=== PATIENT | female | born 1965 | race Caucasian/White ===

== ENCOUNTER → 2019-06-08 | Day surgery (SDC) | payer BC, OTHER ==
--- NOTE | 2019-06-08 18:11 | OP ---
DATE OF OPERATION: 06/08/2019 PREOPERATIVE DIAGNOSIS: Left axillary adenopathy. POSTOPERATIVE DIAGNOSIS: Left axillary adenopathy. PROCEDURE: Left axillary node ultrasound-guided core biopsy and clip placement. ANESTHESIA: Local. ATTENDING SURGEON: Adalid Cannon MD ESTIMATED BLOOD LOSS: Minimal. COMPLICATIONS: None. DESCRIPTION OF PROCEDURE: Patient was made aware of the risks and benefits of the procedure and consented. She was placed in a supine position, and under sterile conditions and 2% lidocaine for local anesthesia, a small fatou was made in the skin. Using a 13-gauge suction biopsy via inferior approach, multiple cores were obtained under ultrasound guidance and submitted to Pathology. Likewise, under ultrasound guidance, a Hydromark barrel-shaped clip was placed into the lymph node. Patient tolerated the procedure well. Steri-Strips and a sterile bandage were applied. We will contact her with results. ADALID CANNON M.D. [id number]
--- NOTE | 2019-06-11 15:33 | PATH ---
Surgical Pathology Report Patient Name: PETER OROZCO [facility]. Rec. #: [id number] /Age/Gender: 1965 (Age: 53) / F Account: [id number] Location: [facility] Taken: 06/08/2019 Received: 06/09/2019 Reported: 06/11/2019 Physicians: Corrina Le M.D. Specimen(s) Received AXILLARY LYMPH NODE, LEFT Clinical History Solitary enlarged left axillary node Final Diagnosis AXILLARY LYMPH NODE, LEFT, CORE BIOPSY: METASTATIC CARCINOMA. TUMOR DEPOSIT MEASURES AT LEAST 3 MM IN THIS MATERIAL. SEE COMMENT. Comment: Immunohistochemical stains performed and interpreted at [facility] show the tumor is positive for AE1/3 and CK7, while negative for CK20. E-cadherin is positive supportive of ductal phenotype. Additional Immunohistochemical stains performed at [facility] [place], [place] ([id number]) and interpreted at [facility] show the tumor is positive for LUCIANO-3, while negative for Mammaglobin and TTF-1. Overall immunophenotype is consistent with breast origin. Suggest clinical and radiologic correlation. Case seen in intradepartmental review with consensus on diagnosis. Results of Estrogen Receptor (ER) and Progesterone Receptor (FL) studies performed at [facility] are as follows: ER (clone [id number] mouse monoclonal antibody by [employer]): ~70% nuclear staining with strong intensity (Positive). FL (clone16 mouse monoclonal antibody by [employer]): ~20% nuclear staining with weak to moderate intensity (Positive). HER2 studies pending and will be reported separately. Positive and negative controls (internal if applicable) show appropriate results. Formalin fixation and cold ischemic times are within current ASCO/CAP recommendations for ER, FL and Her2 testing. Electronically Signed Patricia Do M.D. Addendum Reported: 06/12/2019 Addendum Diagnosis Results of Her2 (IHC) study performed at [place], [place] ([id number]) are as follows: Her2 IHC (EP3 from [employer], formerly known as [id number], using [employer] Polymer Refine detection kit): 0 (Negative). Case discussed with Dr. Mckenna, 06/11/19. Positive and negative controls (internal if applicable) show appropriate results. Patricia Do M.D. Gross Description Received in formalin labeled "left axillary lymph node biopsy," is a 1.5 x 1.5 x 0.3 cm aggregate of doshi-yellow fragments of fibroadipose tissue. The specimen is submitted in toto in one cassette. Time to formalin fixation: Less than one minute Total formalin fixation time: Approximately 17 hours. 06/09/2019 [facility]06/09/2019
== END | disposition home or self-care (01) ==
LOC: FRADUS-SUR 14:41
PROVIDERS: ATTEND Surgery Surgical Oncology
PROC: 07B63ZX Excision of Left Axillary Lymphatic, Percutaneous Approach, Diagnostic (ICD-10-PCS; principal; 2019-06-08)
PROC: BH41ZZZ Ultrasonography of Left Breast (ICD-10-PCS; 2019-06-08)
DX: C77.3 Secondary and unspecified malignant neoplasm of axilla and upper limb lymph nodes (principal)
CPT/HCPCS: 19083; 38505; 87899; A4648